=== PATIENT | female | born 1990 | race African-American/Black ===

== ENCOUNTER 2017-02-20 03:02 | Emergency (ER) | payer MEDICAID ==
[~2017-02-20] VITALS: Ht 152.4 cm; Wt 91.0 kg
[~2017-02-20 03:02] MED LIST: ALBU6.7H INH; PRENCAP10 PO; ZITH250T PO
[2017-02-20 03:03] VITALS: BP 130/90; PULSE 87; RESP 16; TEMP 98.9; O2SAT 99
[2017-02-20] MEDS ORDERED: methylPREDNISolone SOD SUCC 125 MG/2 ML VIAL IM ONE (04:00)
[2017-02-20] MEDS ORDERED: AMOXICILLIN 400 MG/5ML LIQ 100 ML BTL PO ONE (04:00)
[2017-02-20] MEDS ORDERED: IBUPROFEN SUSP 100 MG/5 ML UDC PO ONE (04:00)
[2017-02-20] MEDS ORDERED: MEDR4PAK PO (04:33)
[2017-02-20] MEDS ORDERED: IBUP800T23 PO (04:33)
[2017-02-20] MEDS ORDERED: AMOX875T PO (04:33)
--- NOTE | 2017-02-20 04:34 | PD ---
HPI Chief Complaint: Cold / Flu Symptoms Time Seen by Provider: 03:13 Travel History International Travel<30 days: No Contact w/Intl Traveler<30days: No Traveled to known affect area: No History of Present Illness HPI Patient is a 26-year-old female presenting to emergency evaluation of a sore throat. She states it started 2 days ago, she states it's painful to swallow, she reports her pain is an 8 out of 10. She denies any documented fever, but has felt chilled. She denies any headache, nausea, vomiting, neck pain. Denies any nasal congestion or cough. Patient states she took one Tylenol approximately one hour prior to arrival. She states that she is able to swallow , she denies any dysphasia. [facility], [facility] Past Medical History Diminished Hearing: No Hypertension: Yes Tetanus Vaccination: Unknown Influenza Vaccination: No ?: Not LMP: 02/01/17 : 3 Para: 3 Dilation and Curettage (D&C): Yes (R/T BLEEDING PROBLEM) Past Surgical History Abdominal Surgery: Yes (UMBILLICAL HERNIA) Section: Yes (3) Social History Alcohol Use: No Tobacco Use: No Substance Use: No Allergies-Medications (Allergen,Severity, Reaction): Coded Allergies: No Known Allergies (Unverified , 02/20/17) Reported Meds & Prescriptions Reported Meds & Active Scripts Active No Active Prescriptions or Reported Medications Review of Systems Except as stated in HPI: all other systems reviewed are Neg General / Constitutional: Positive: Chills, No: Fever HENT: Positive: Sore Throat, No: Headaches, Congestion, Earache Cardiovascular: No: Chest Pain or Discomfort Respiratory: No: Shortness of Breath Gastrointestinal: No: Nausea, Abdominal Pain Musculoskeletal: No: Myalgias Physical Exam Narrative GENERAL: Overweight, well-developed, alert female. Resting comfortably in no acute distress. SKIN: Warm and dry. HEAD: Normocephalic. EYES: No scleral icterus. No injection or drainage. ENT: Mucosa pink and moist. Mild erythema to bilateral tonsils and posterior, scant exudate noted on bilateral tonsils, 2+ tonsillar hypertrophy. No uvular edema. No uvular, palatal, or tonsillar deviation. Airway patent. Nasal turbinates appear normal without nasal blood, purulent drainage or septal hematoma. NECK: Supple, trachea midline. No JVD or lymphadenopathy. CARDIOVASCULAR: Regular rate and rhythm without murmurs, gallops, or rubs. RESPIRATORY: Breath sounds equal bilaterally. No accessory muscle use. GASTROINTESTINAL: Abdomen soft, non-tender, nondistended. MUSCULOSKELETAL: No cyanosis, or edema. BACK: Nontender without obvious deformity. No CVA tenderness. Data Data Last Documented VS Vital Signs Date Time Temp Pulse Resp B/P (MAP) Pulse Ox O2 Delivery O2 Flow Rate FiO2 02/20/17 03:03 98.9 87 16 130/90 (103) 99 Room Air Orders Orders Methylprednisolone So Succ Inj (Solumedr (02/20/17 04:00) Ibuprofen Liq (Motrin Liq) (02/20/17 04:00) Amoxicillin 400 Mg/5ml Liq (Trimox 400 M (02/20/17 04:00) MDM Medical Decision Making Medical Screen Exam Complete: Yes Emergency Medical Condition: Yes Interpretation(s) Vital Signs Date Time Temp Pulse Resp B/P (MAP) Pulse Ox O2 Delivery O2 Flow Rate FiO2 02/20/17 03:03 98.9 87 16 130/90 (103) 99 Room Air Differential Diagnosis Pharyngitis versus abscess versus URI versus other Narrative Course Is a 26-year-old female presenting with 2 days of a sore throat. Her vital signs are stable. Physical exam revealed bilaterally enlarged tonsils. Patient was given thiamine jaw, amoxicillin and ibuprofen in the emergency department. Patient was encouraged to complete full course of antibiotics as prescribed, follow up with her primary doctor. She is advised to return to emergency department immediately for any new or worsening symptoms. She verbalized understanding of these instructions. Patient stable for discharge. Diagnosis Primary Impression: Pharyngitis Qualified Codes: J02.9 - Acute pharyngitis, unspecified Referrals: Primary Care Physician 2 days Patient Instructions: General Instructions, Pharyngitis (ED) Additional Instructions: Follow-up with your primary doctor Complete full course of antibiotics as prescribed Take ibuprofen as needed and as directed for pain. Return to emergency department for any new or worsening symptoms Med/Other Pt SpecificInfo: Prescription(s) given Scripts Ibuprofen (Ibuprofen) 800 Mg Tab 800 MG PO Q8H Y for Pain/Inflammation, #60 TAB 0 Refills Prov: Jeannie Jerez 02/20/17 Methylprednisolone Dosepak (Medrol Dosepak) 4 Mg Dspk 4 MG PO DIRECTED, #1 DSPK 0 Refills Per Pharmacist direction Prov: Jeannie Jerez 02/20/17 Amoxicillin (Amoxicillin) 875 Mg Tab 875 MG PO BID for Infection, #20 TAB 0 Refills Prov: Jeannie Jerez 02/20/17 Disposition: 01 DISCHARGE HOME Condition: Stable Jeannie Jerez Feb 20, 2017 04:34
== END 2017-02-20 05:18 | disposition home or self-care (01) ==
LOC: NEPD 03:02
DX: J02.9 Acute pharyngitis, unspecified (principal)
CPT/HCPCS: 96372; 99284; J2930

== ENCOUNTER 2017-06-21 06:59 | Emergency (ER) | payer MEDICAID ==
[~2017-06-21] VITALS: Ht 172.7 cm; Wt 86.0 kg
[~2017-06-21 06:59] MED LIST changes: -ALBU6.7H INH; +AMOX875T PO; +IBUP1TAB7 PO; +MEDR4PAK PO; -PRENCAP10 PO; -ZITH250T PO
[2017-06-21 07:03] VITALS: BP 135/88; PULSE 76; RESP 15; TEMP 97.9; O2SAT 100
[2017-06-21] MEDS ORDERED: GUAISYP4 PO (07:26)
[2017-06-21] MEDS ORDERED: ALBU6.7H INH (07:26)
[2017-06-21] MEDS ORDERED: OSEL75 PO (07:26)
--- NOTE | 2017-06-21 07:26 | PD ---
HPI Chief Complaint: Cold / Flu Symptoms Time Seen by Provider: 07:17 Travel History International Travel<30 days: No Contact w/Intl Traveler<30days: No Traveled to known affect area: No History of Present Illness HPI Patient states that she was exposed to kids who were diagnosed with flu. Approximately 2 days ago and over the last day or so she has developed runny nose cough which is dry for the time being, no fever but present body aches. Patient denies any alleviating or aggravating factors. Patient denies any associated factors such as fever, headache, neck stiffness, rash, abdominal pain , back pain, nausea, vomiting, or diarrhea Patient denies having any allergies to medications Past medical history: Patient denies Past surgical history: Denies PFSH Past Medical History Diminished Hearing: No Hypertension: Yes ?: Not LMP: 06/07/17 : 3 Para: 3 Dilation and Curettage (D&C): Yes (R/T BLEEDING PROBLEM) Past Surgical History Abdominal Surgery: Yes (UMBILLICAL HERNIA) Section: Yes (3) Social History Alcohol Use: No Tobacco Use: No Substance Use: No Allergies-Medications (Allergen,Severity, Reaction): Coded Allergies: No Known Allergies (Unverified , 02/20/17) Reported Meds & Prescriptions Reported Meds & Active Scripts Active Ibuprofen 800 Mg Tab 800 Mg PO Q8H PRN Medrol Dosepak (Methylprednisolone) 4 Mg Dspk 4 Mg PO DIRECTED Per Pharmacist direction Amoxicillin 875 Mg Tab 875 Mg PO BID Review of Systems General / Constitutional: No: Fever Eyes: No: Visual changes HENT: Positive: Rhinorrhea Cardiovascular: No: Chest Pain or Discomfort Respiratory: Positive: Cough Gastrointestinal: No: Abdominal Pain Genitourinary: No: Dysuria Musculoskeletal: No: Pain Skin: No Rash Neurologic: No: Weakness Psychiatric: No: Depression Endocrine: No: Polydipsia Hematologic/Lymphatic: No: Easy Bruising Physical Exam Narrative GENERAL: SKIN: Warm and dry. HEAD: Atraumatic. Normocephalic. EYES: Pupils equal and round. No scleral icterus. No injection or drainage. ENT: No nasal bleeding or discharge. Mucous membranes pink and moist. NECK: Trachea midline. No JVD. CARDIOVASCULAR: Regular rate and rhythm. RESPIRATORY: No accessory muscle use. mild ronchi scattered. tidal volume equal bilaterally. GASTROINTESTINAL: Abdomen soft, non-tender, nondistended. Hepatic and splenic margins not palpable. MUSCULOSKELETAL: Extremities without clubbing, cyanosis, or edema. No obvious deformities. NEUROLOGICAL: Awake and alert. No obvious cranial nerve deficits. Motor grossly within normal limits. Five out of 5 muscle strength in the arms and legs. Normal speech. PSYCHIATRIC: Appropriate mood and affect; insight and judgment normal. Data Data Last Documented VS Vital Signs Date Time Temp Pulse Resp B/P (MAP) Pulse Ox O2 Delivery O2 Flow Rate FiO2 06/21/17 07:13 89 18 99 Room Air 06/21/17 07:03 97.9 135/88 (104) Orders Orders Chest, Single Ap (06/21/17 07:17) [facility] Medical Decision Making Medical Screen Exam Complete: Yes Emergency Medical Condition: Yes Medical Record Reviewed: Yes Differential Diagnosis uri v flu v pna v pleural effusion Narrative Course Chest x-ray does not show any evidence of pleural effusion, or pneumonia. Based on the patient's clinical presentation and exposure patient will be empirically treated with Tamiflu. Diagnosis Primary Impression: flu Patient Instructions: General Instructions, Influenza (DC) Scripts Guaifenesin-Codeine Liq (Guaifenesin AC Liq) 100-10 Mg/5 Ml Syrp 10 ML PO Q4H Y for COUGH, #120 ML 0 Refills Prov: Zion Dominguez MD 06/21/17 Albuterol 6.7 GM Inh (Proventil Hfa 6.7 GM Inh) 90 Mcg/Act Aer 2 PUFF INH Q4-6H Y for SHORTNESS OF BREATH, #1 INHALER 0 Refills Prov: Zion Dominguez MD 06/21/17 Oseltamivir (Tamiflu) 75 Mg Cap 75 MG PO BID for Mgmt Viral Infection for 5 Days, #10 CAP 0 Refills Prov: Zion Dominguez MD 06/21/17 Disposition: 01 DISCHARGE HOME Condition: Stable Zion Dominguez MD Jun 21, 2017 07:26
--- NOTE | 2017-06-21 07:38 | RADRPT ---
EXAM DATE/TIME: 06/21/2017 07:34 [facility] COMPARISON: No previous studies available for comparison. INDICATIONS : Cough. Chest pain. MEDICAL HISTORY : None. SURGICAL HISTORY : None. ENCOUNTER: Initial ACUITY: 3 days PAIN SCORE: 9/10 LOCATION: Bilateral chest FINDINGS: A single view of the chest demonstrates the lungs to be symmetrically aerated without evidence of mas s, infiltrate or effusion. The cardiomediastinal contours are unremarkable. Osseous structures are intact. CONCLUSION: The lungs are clear. Juni Mcmahan MD on June 21, 2017 at 7:36 Board Certified Radiologist. This report was verified electronically.
== END 2017-06-21 08:06 | disposition home or self-care (01) ==
LOC: NEPE 06:59
DX: J11.1 Influenza due to unidentified influenza virus with other respiratory manifestations (principal)
CPT/HCPCS: 71045; 99283